=== PATIENT | female | born 1990 | race African-American/Black ===

== ENCOUNTER 2025-02-24 17:08 | Emergency (ER) | payer MEDICAID, SELFPAY ==
--- NOTE | ~2025-02-24 | US_ITS ---
CLINICAL HISTORY: pain and swelling Venous duplex ultrasound right lower extremity Comparison: None provided Findings: The visualized deep veins are fully compressible with normal Doppler color flow and spectral tracings. No popliteal cyst. IMPRESSION: 1. Negative for right lower extremity deep vein thrombosis. This document has been electronically signed by: Santana Amaro MD on 02/24/2025 18:40:57
--- NOTE | 2025-02-24 17:12 | ECG_ITS ---
Test Reason : CP Blood Pressure : */* mmHG Vent. Rate : 91 BPM Atrial Rate : 91 BPM P-R Int : 134 ms QRS Dur : 80 ms QT Int : 354 ms P-R-T Axes : 18 -24 52 degrees QTcB Int : 435 ms Normal sinus rhythm Minimal voltage criteria for LVH, may be normal variant ( R in aVL ) Borderline ECG No previous ECGs available Referred By: Generic ED Physician Electronically Signed By: SHY ROBERTSON MD
[2025-02-24 17:22] VITALS: BP 230/95; PULSE 93; RESP 16; TEMP 36.4; O2SAT 97; BMI 44.6
--- NOTE | 2025-02-24 17:29 | ED_ITS ---
HPI - General Adult General Chief complaint: General Medical Stated complaint: CP, leg pain & swelling Time Seen by Provider: 02/24/25 18:50 Source: patient Mode of arrival: ambulatory Limitations: no limitations History of Present Illness ED Provider: [facility] narrative: This is a 34-year-old woman, currently on Zepbound without any issues, control patch, presenting with chest pain while at work, felt numbness in the right leg and some sharp chest pains, reports seeing her PCP 2 weeks ago no history of hypotension, was noted to be hypotensive in triage. No recent surgery no history of blood clots, no hemoptysis no fevers or chills. No nausea no vomiting associated with the symptoms she is very anxious about her symptoms. Related Data Allergies Allergy/AdvReac Type Severity Reaction Status Date / Time human papillomavirus Allergy Severe ANAPHYLAXIS Verified 02/24/25 17:24 vaccine, quadr (From Gardasil (PF)) fluconazole (From DIFLUCAN) Allergy Mild HIVES Verified 02/24/25 17:24 latex (LATEX) Allergy Mild HIVES Verified 02/24/25 17:24 Latex Allergy Unknown hives Uncoded 05/20/13 00:00 Review of Systems 2 Constitutional: Constitutional: Reports as per [facility] Social History Social History Smoked in Last 30 Days: No Use of substances other than those prescribed or required for medical reasons: No Advance Directives: No Advance Directives Information Provided: Yes Patient : No Physical Exam ED Vital Signs: Vital Signs - 24 hr 02/24/25 17:22 02/24/25 19:33 Temperature 97.5 F Pulse Rate 93 Respiratory Rate 16 Blood Pressure 230/95 H 144/71 H Pulse Oximetry 97 Oxygen Delivery Method Room Air BMI result Body Mass Index 44.6 Const Other: * Gen: ?Overall well-appearing patient with anxious affect * HEENT: PERRLA, EOMI, MMM, * Neck: Supple, no LAD * CV: RRR, no obvious murmurs appreciated * Resp: ?No wheezing rales rhonchi no stridor moving air well, no tenderness along her ribcage * Abd: ?Bowel sounds are present, no tenderness no rebound no rigidity * MSK: FROM, strength 5/5 all extremities * Skin: Warm, dry, intact, * Neuro: ?Alert and oriented x3, moving upper and lower extremities symmetrically, no obvious facial asymmetry noted Course Course Course Narrative: RME, this is a rapid medical exam performed by Carlos A Townsend please refer to primary provider for complete H&P- 34-year-old female presents for evaluation of chest pain and right leg swelling. Plan for labs, EKG and ultrasound of the right lower extremity Medications Administered Discontinued Medications Generic Name Dose Route Start Last Admin Trade Name Juwan PRN Reason Stop Dose Admin Diazepam 2 mg 02/24/25 19:33 02/24/25 19:38 Diazepam 2 Mg Tablet PO 02/24/25 19:34 2 mg ONCE ONE Administration Medical Decision Making Medical Decision Making MDM Narrative: Patient is on control patch we will obtain D-dimer to evaluate for PE no hypoxia tachycardic son of the leg without any blood clots, ECG cardiac enzymes reassuring, she was noted to be significantly hypotensive in triage however by the time we spoke and I checked her blood pressure at bedside it came down quite a bit without me having to give her any medications, she is likely experiencing white coat hypotension, if her D-dimer is negative anticipating discharge, there was no severe chest pain radiating to the back to suspect aortic dissection necessitating further imaging such as CTA Differential Diagnosis Differential Diagnoses: The differential diagnosis associated with the presentation includes (ACS, pneumothorax, aortic dissection, PE, Boerhaave syndrome) Admission/Observation Consideration of admission/observation: Escalation of care including admission/observation considered 2022 Emergency Medicine Coding Guide from [employer] on 02/24/2025 All calculations should be rechecked by clinician prior to use RESULT SUMMARY: 5 Estimated Level of Service Problems: High (5) Risk: High (5) Data: Extensive (5) NARRATIVE MDM: This patient's problem complexity is High as patient: may have an acute or chronic illness/injury posing a threat to life or body function. This patient's risk is High due to: overall presentation requiring evaluation for a potentially High-risk process. This patient's data complexity is Extensive due to: -multiple tests ordered/reviewed -external notes reviewed -independent interpretation of imaging or EKG INPUTS: Number and Complexity ?> 2 = 5: illness/injury w/life or body threat (b) Risk level ?> 4 = High Tests ordered ?> 3 = =3 Tests results reviewed (excluding labs) ?> 2 = 2 Prior external notes reviewed ?> 1 = 1 Assessment requiring and independent historian ?> 0 = No Independent interpretation of tests ?> 1 = Yes Discussed management/test interpretation w/external professional ?> 0 = No Lab Data MDM Lab Attestation statement: I reviewed the patient's lab results. 02/24/25 17:40 02/24/25 17:40 Labs: Lab Results 02/24/25 Range/Units 17:40 WBC 9.1 (4.8-10.8) X10*3/uL RBC 4.38 (4.20-5.50) X10*6/uL Hgb 12.2 (12.0-16.0) g/dl Hct 37.1 (37.0-47.0) % MCV 84.7 (80.0-98.0) fL MCH 27.9 (27.0-33.0) pg MCHC 32.9 (31.0-35.0) g/dl RDW 14.0 (11.0-16.0) % Plt Count 330 (160-400) X10*3/uL MPV 9.0 L (9.4-12.3) fL Immature Gran % (Auto) 0.1 (0.0-0.4) % Neut % (Auto) 41.3 L (45-73) % Lymph % (Auto) 50.2 H (20-40) % [place] % (Auto) 5.7 (2-11) % Eos % (Auto) 2.3 (0-4) % Baso % (Auto) 0.4 (0-2) % Lymph # (Auto) 4.6 (1.2-4.9) X10*3/uL [place] # (Auto) 0.5 (0.1-1.2) X10*3/uL Eos # (Auto) 0.2 (0.0-0.4) X10*3/uL Baso # (Auto) 0.0 (0.0-0.2) X10*3/uL Abs Immat Gran (auto) 0.01 (0.00-0.03) X10*3/uL Absolute Neuts (auto) 3.8 (2.0-8.3) x10*3/uL Absolute Nucleated RBC 0.000 (0.0-0.012) X10*3/uL Nucleated RBC % (auto) 0.0 (0.0-0.2) /100WBC Sodium 139 (135-145) mmol/L Potassium 3.7 (3.3-5.1) mmol/L Chloride 108 (96-108) mmol/L Carbon Dioxide 23 (22-29) mmol/L Anion Gap 12 (12-20) BUN 9 (9-16) mg/dL Creatinine 0.83 (0.5-1.4) mg/dL Estim Creat Clear Calc 118.3 Estimated GFR > 60 Random Glucose 95 (60-115) mg/dL Calcium 9.4 (8.4-10.2) mg/dL Total Bilirubin 0.2 (0.0-1.0) mg/dL AST 25 (5-31) U/L ALT 21 (0-31) U/L Alkaline Phosphatase 57 (39-117) U/L Troponin I High Sens < 2.7 (<3.5-17.0) ng/L B-Natriuretic Peptide 13 (<100) pg/mL Total Protein 7.2 (6.5-8.0) g/dL Albumin 4.1 (3.5-5.0) g/dL Lipase 23 (8-78) U/L Independent Interpretation I performed an independent interpretation of an: EKG (91 beats per minute otherwise normal ECG without dysrhythmia, AV micki blocks or ST-T changes to suspect underlying ACS, my independent interpretation) Prescription Management I considered prescription management with: Pain Medication and Other (Anxiolytics) Discharge Plan Discharge Clinical Impression: Chest pain, precordial, Numbness and tingling of right leg Patient Disposition: Home, Self-Care Additional Instructions: When the workup you have had unremarkable physical examination, initial your blood pressure was quite high it is improved without any medications and then I did give you a little medication for anxiety, you had workup for blood clots, that was negative both with the ultrasound and a test for clots in the lungs, EKG and the rest of the blood work has been reassuring, continue with weight loss, monitor your salt intake, follow up with the PCP, if you have any other issues concerns come back to the ER Print Language: Sami
[2025-02-24 17:47] LABS: MANUAL DIFF FLAG NO
[2025-02-24 17:48] LABS: Hematocrit 37.1 % (37.0-47.0); Hemoglobin 12.2 g/dl (12.0-16.0); Imm Gran Abs Auto 0.01 X10*3/uL (0.00-0.03); Imm Gran Pct Auto 0.1 % (0.0-0.4); Lymphocytes Absolute Auto 4.6 X10*3/uL (1.2-4.9); Mean Corpuscular HGB Conc 32.9 g/dl (31.0-35.0); Mean Corpuscular Hemoglobin 27.9 pg (27.0-33.0); Mean Corpuscular Volume 84.7 fL (80.0-98.0); NRBC Abs Auto 0.000 X10*3/uL (0.0-0.012); NRBC Pct Auto 0.0 /100WBC (0.0-0.2); Platelet Count 330 X10*3/uL (160-400); Red Blood Count 4.38 X10*6/uL (4.20-5.50); White Blood Count 9.1 X10*3/uL (4.8-10.8)
[2025-02-24 18:04] LABS: Alanine Aminotransferase 21 U/L (0-31); Albumin Level 4.1 g/dL (3.5-5.0); Alkaline Phosphatase 57 U/L (39-117); Anion Gap 12 (12-20); Aspartate Amino Transferase 25 U/L (5-31); Blood Urea Nitrogen 9 mg/dL (9-16); Calcium 9.4 mg/dL (8.4-10.2); Carbon Dioxide 23 mmol/L (22-29); Chloride 108 mmol/L (96-108); Creatinine Clr Calc Pharmacy 118.3; Estimated Glomerular Filt Rate > 60; Lipase 23 U/L (8-78); Potassium 3.7 mmol/L (3.3-5.1); Sodium 139 mmol/L (135-145); Total Protein 7.2 g/dL (6.5-8.0)
[2025-02-24 18:07] LABS: B Type Natriuretic Peptide 13 pg/mL (<100)
[2025-02-24 18:12] LABS: Troponin-I High Sensitivity < 2.7 ng/L (<3.5-17.0)
[2025-02-24 19:33] VITALS: BP 144/71
[2025-02-24 21:19] LABS: D Dimer High Sensitivity < 150 NG/ML
[2025-02-24 21:34] VITALS: BP 144/71; PULSE 78; RESP 16; TEMP 36.6; O2SAT 97
== END 2025-02-24 21:35 | disposition home or self-care (01) ==
PROVIDERS: Physician Assistant; Emergency Provider Emergency Medicine
DX: R07.2 Precordial pain (principal); I95.89 Other hypotension; M79.606 Pain in leg, unspecified; Z79.899 Other long term (current) drug therapy
CPT/HCPCS: 36415; 80053; 83690; 83880; 84484; 85025; 85379; 93005; 93971; 99284

== ENCOUNTER → 2025-02-24 17:12 | Outpatient (BNV) | payer MEDICAID, SELFPAY | PROVIDERS: Emergency Provider Emergency Medicine; Visit Provider Internal Medicine Cardiovascular Disease | DX: R07.89 Other chest pain (principal) | CPT/HCPCS: 93010 ==

== ENCOUNTER → 2025-02-24 17:29 | Outpatient (BNV) | payer MEDICAID, SELFPAY | PROVIDERS: Emergency Provider Emergency Medicine; Visit Provider Radiology Diagnostic Radiology | DX: R22.41 Localized swelling, mass and lump, right lower limb (principal) | CPT/HCPCS: 93971 ==